=== PATIENT | female | born 1995 | race American Indian/Alaskan Native ===

== ENCOUNTER 2019-10-01 22:07 | Emergency (ER) | payer OTHER ==
[2019-10-02] MEDS ORDERED: ACETAMINOPHEN 500 MG TAB PO ONE (02:50)
[2019-10-02 03:27] LABS: Mean Corpuscular HGB Conc 30 % (30-34); Platelet Count 639 K/mm3 (140-440); Red Blood Count 5.25 M/mm3 (3.65-5.03)
[2019-10-02 03:36] LABS: Hemoglobin 9.2 gm/dl (10.1-14.3); Mean Corpuscular Volume 59 fl (79-97); Red Cell Distribution Width 30.7 % (13.2-15.2)
[2019-10-02 03:41] LABS: Bilirubin,Urine NEG (Negative); Blood,Urine NEG (Negative); Color,Urine Yellow (Yellow); Mucus,Urine FEW /HPF; Protein,Urine <15 mg/dL mg/dL (Negative); WBC,Urine < 1.0 /HPF (0.0-6.0)
[2019-10-02 03:48] LABS: Alanine Aminotransferase 11 units/L (7-56); Albumin 4.4 g/dL (3.9-5); BUN/Creatinine Ratio 26; Blood Urea Nitrogen 13 mg/dL (7-17); Calcium 9.2 mg/dL (8.4-10.2); Hemolysis Index 2
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
[2019-10-02 04:23] LABS: Total Cells Counted 100
[2019-10-02 04:24] LABS: Anisocytosis 3+; Hypochromasia 3+
[2019-10-02 04:26] LABS: Platelet Estimate Consistent w Auto
[2019-10-02 05:15] VITALS: BP 119/71
== END 2019-10-02 04:41 | disposition home or self-care (01) ==
LOC: ED 22:07
DX: O9A.211 Injury, poisoning and certain other consequences of external causes complicating pregnancy, first trimester (principal); S39.011A Strain of muscle, fascia and tendon of abdomen, initial encounter; Z3A.01 Less than 8 weeks gestation of pregnancy; V89.2XXA Person injured in unspecified motor-vehicle accident, traffic, initial encounter; Y93.89 Activity, other specified; Y92.410 Unspecified street and highway as the place of occurrence of the external cause; Y99.8 Other external cause status
CPT/HCPCS: 36415; 80053; 81001; 84702; 84703; 85007; 85025